=== PATIENT | male | born 1950 | race Caucasian/White ===

== ENCOUNTER 2025-03-10 13:43 | Emergency (ER) | payer MEDICARE, MEDICAID ==
[~2025-03-10] VITALS: Ht 177.8 cm; Wt 78.0 kg
[2025-03-10 13:45] VITALS: O2SAT 100
[2025-03-10 15:01] LABS: CHLORIDE 106 mEq/L (98-107); POTASSIUM 3.4 mEq/L (3.5-5.1); SODIUM 141 mEq/L (136-145)
[2025-03-10 15:02] LABS: BASOPHILS % 0.2 % (0.0-2.0); CALCIUM 8.8 mg/dL (8.7-10.4); CARBON DIOXIDE 20 mEq/L (21-32); DIFFERENTIAL COMMENT 0; EOSINOPHILS % 1.5 % (0.0-5.0); HEMATOCRIT. 35.6 % (42.0-52.0); HEMOGLOBIN. 12.2 g/dL (14.0-18.0); LYMPHOCYTES % 22.1 % (20.0-50.0); MEAN CORPUSCULAR HEMOGLOBIN 35.6 pg (28.0-32.0); MEAN CORPUSCULAR HGB CONC 34.3 g/dL (31.0-37.0); MEAN CORPUSCULAR VOLUME 103.9 fL (80.0-94.0); MEAN PLATELET VOLUME 9.3 fl (7.4-10.4); MONOCYTES % 9.2 % (2.0-8.0); PLATELET 189 x1000/uL (130-400); RED BLOOD CELL COUNT 3.43 mill/uL (4.7-6.1); RED CELL DISTRIBUTION WIDTH 13.4 % (11.6-14.6); WHITE BLOOD COUNT 5.7 x1000/uL (4.5-11.0)
[2025-03-10 15:07] LABS: CREATININE 1.7 mg/dL (0.6-1.3); GLUCOSE 144 mg/dL (70-105); INR 1.1; PROTHROMBIN TIME 11.4 sec (9.6-11.0); UREA NITROGEN BLOOD 6 mg/dL (9-23)
[2025-03-10 15:08] LABS: TROPONIN I HIGH SENSITIVITY 5 ng/L (3.0-53)
[2025-03-10] MEDS: SODIUM CHLORIDE 0.9% 1,000 ML IV ONE (15:39)
[2025-03-10] MEDS: ONDANSETRON HCL 4MG/2ML INJ IV STA (15:39)
[2025-03-10 15:43] VITALS: BP 119/80; PULSE 85; RESP 16; TEMP 37.1; O2SAT 97
== END 2025-03-10 17:16 | disposition home or self-care (01) ==
LOC: ER 13:43
DX: R55 Syncope and collapse (principal)
CPT/HCPCS: 99285; 96374; 71045; 96361; 80048; 83880; 85025; 85610; 84484; 36415; 93005; J2405